=== PATIENT | female | born 1990 | race Caucasian/White ===

== ENCOUNTER → 2023-08-31 11:51 | Outpatient (REF) | payer BC, SELFPAY ==
[2023-08-31 13:51] LABS: HCG, Serum Qualitative Screen Positive
[2023-08-31 14:34] LABS: Glycohemoglobin (HgbA1c) 5.1 % (4.0-5.6)
[2023-09-01 15:51] LABS: Varicella Zoster IgG (VZV) Positive
[2023-09-01 18:51] LABS: Hepatitis B Surface Antigen Negative (Negative)
[2023-09-01 19:09] LABS: Hepatitis C Antibody Negative (Negative)
[2023-09-01 20:22] LABS: Rubella Positive
[2023-09-02 13:13] LABS: HIV Combo Negative (Negative)
[2023-09-02 16:30] LABS: Syphilis/T. pallidum Ab Reflex Negative (Negative)
== END ==
LOC: REG 11:51
PROVIDERS: ATTENDING PHYSICIAN Obstetrics & Gynecology; FAMILY PHYSICIAN Obstetrics & Gynecology
DX: Z34.90 Encounter for supervision of normal pregnancy, unspecified, unspecified trimester (principal); Z13.0 Encounter for screening for diseases of the blood and blood-forming organs and certain disorders involving the immune mechanism; Z11.3 Encounter for screening for infections with a predominantly sexual mode of transmission
CPT/HCPCS: 36415; 83036; 84703; 86762; 86780; 86787; 86803; 86850; 86900; 86901; 87086; 87340; 87389; 87522

== ENCOUNTER → 2023-09-05 11:20 | Outpatient (REF) | payer BC, SELFPAY | LOC: PNTC 11:20 | PROVIDERS: ATTENDING PHYSICIAN Obstetrics & Gynecology | DX: O36.80X0 Pregnancy with inconclusive fetal viability, not applicable or unspecified (principal) | CPT/HCPCS: 76801 ==

== ENCOUNTER → 2023-10-03 14:59 | Outpatient (REF) | payer BC, SELFPAY ==
[2023-10-03 17:31] LABS: ALT (SGPT) 11 U/L (0-35); AST (SGOT) 24 U/L (14-36); Albumin 4.1 g/dl (3.5-5.0); Alkaline Phosphatase 46 U/L (38-126); Direct Bilirubin 0.1 mg/dl (0.0-0.4); Total Bilirubin 0.6 mg/dl (0.2-1.3); Total Protein 6.5 g/dl (6.3-8.2)
[2023-10-05 17:31] LABS: Bile Acids (Cholylglycine) 9 umol/L (0-10)
[2023-10-06 10:16] LABS: Capillary Hgb Electrophoresis Not Performed; Sickle Cell Solubility Reflex Not Performed
== END ==
LOC: PNTC 14:59
PROVIDERS: ATTENDING PHYSICIAN Obstetrics & Gynecology
DX: Z36.0 Encounter for antenatal screening for chromosomal anomalies (principal); Z36.82 Encounter for antenatal screening for nuchal translucency
CPT/HCPCS: 36415; 76801; 76813; 80076; 82239; 83021

== ENCOUNTER → 2023-10-10 13:36 | Outpatient (REF) | payer BC, SELFPAY ==
[2023-10-10 15:13] LABS: % Basophils 0.7 % (0-2); % Eosinophils 3.5 % (0-6); % Immature Granulocytes 0.1 % (0-0.5); % Lymphocytes 26.3 % (20.5-51.1); % Monocytes 4.9 % (1.7-9.3); % Neutrophils 64.5 % (42.2-75.2); Absolute Basophils 0.1 10^3/uL (0-0.2); Absolute Eosinophils 0.3 10^3/uL (0-0.7); Absolute Lymphocytes 2.2 10^3/uL (1.2-3.4); Absolute Monocytes 0.4 10^3/uL (0.1-0.6); Absolute Neutrophils 5.3 10^3/uL (1.4-6.5); Hematocrit 35.5 % (37.0-47.0); Hemoglobin 12.2 g/dL (12.0-16.0); Mean Corp Hgb Conc. 34.4 g/dL (33.0-37.0); Mean Corpuscular Hgb 29.6 pg (27.0-31.0); Mean Corpuscular Volume 86.2 fL (81.0-99.0); Mean Platelet Volume 9.7 fL (7.4-10.4); Nucleated Red Blood Cells % 0 %; Platelet Count 287 10^3/uL (130-400); Red Blood Cell Count 4.12 10^6/uL (4.20-5.40); Red Cell Dist. Width 12.8 % (11.5-14.5); White Blood Cell Count 8.2 10^3/uL (4.8-10.8)
[2023-10-10 16:57] LABS: ALT (SGPT) 10 U/L (0-35); AST (SGOT) 23 U/L (14-36)
== END ==
LOC: REG 13:36
PROVIDERS: ATTENDING PHYSICIAN Obstetrics & Gynecology; FAMILY PHYSICIAN Physician Assistant
DX: L28.2 Other prurigo (principal)
CPT/HCPCS: 36415; 84450; 84460; 85025

== ENCOUNTER → 2023-11-28 13:28 | Outpatient (REF) | payer BC, SELFPAY | LOC: PNTC 13:28 | PROVIDERS: ATTENDING PHYSICIAN Obstetrics & Gynecology | DX: Z34.90 Encounter for supervision of normal pregnancy, unspecified, unspecified trimester (principal) | CPT/HCPCS: 76805 ==

== ENCOUNTER → 2024-02-16 06:51 | Outpatient (REF) | payer BC, SELFPAY | LOC: PNTC 06:51 | PROVIDERS: ATTENDING PHYSICIAN Obstetrics & Gynecology Obstetrics | DX: Z36.4 Encounter for antenatal screening for fetal growth retardation (principal); Z36.89 Encounter for other specified antenatal screening | CPT/HCPCS: 76816 ==

== ENCOUNTER → 2024-03-15 07:57 | Outpatient (REF) | payer BC, SELFPAY | LOC: PNTC 07:57 | PROVIDERS: ATTENDING PHYSICIAN Obstetrics & Gynecology | DX: O36.5110 Maternal care for known or suspected placental insufficiency, first trimester, not applicable or unspecified (principal); Z87.59 Personal history of other complications of pregnancy, childbirth and the puerperium | CPT/HCPCS: 76816 ==

== ENCOUNTER → 2024-06-12 14:51 | Outpatient (REF) | payer BC, SELFPAY | LOC: CLAB 14:51 | PROVIDERS: Pathology Anatomic Pathology & Clinical Pathology; ATTENDING PHYSICIAN General Practice | DX: D22.5 Melanocytic nevi of trunk (principal) | CPT/HCPCS: 88305 ==

== ENCOUNTER → 2025-01-22 07:25 | Outpatient (REF) | payer BC, SELFPAY ==
[2025-01-22 08:21] LABS: Hematocrit 41.3 % (37.0-47.0); Hemoglobin 13.5 g/dL (12.0-16.0); Mean Corp Hgb Conc. 32.7 g/dL (33.0-37.0); Mean Corpuscular Volume 85.7 fL (81.0-99.0); Nucleated Red Blood Cells % 0 %; Platelet Count 297 10^3/uL (130-400); Red Cell Dist. Width 12.8 % (11.5-14.5)
[2025-01-22 08:25] LABS: ALT (SGPT) 19 U/L (0-35); AST (SGOT) 24 U/L (14-36); Albumin 5.0 g/dl (3.5-5.0); Alkaline Phosphatase 55 U/L (38-126); Blood Urea Nitrogen 13 mg/dl (7-17); Calcium 9.5 mg/dl (8.4-10.2); Carbon Dioxide 27 mmol/L (22-30); Chloride 103 mmol/L (98-107); Glucose 88 mg/dl (70-99); Potassium 4.2 mmol/L (3.5-5.1); Sodium 137 mmol/L (135-145); Total Protein 7.9 g/dl (6.3-8.2); Very Low Density Lipoprotein 10 mg/dl (0-30); eGFR > 60.00
[2025-01-22 08:36] LABS: HDL Cholesterol 140 mg/dl; LDL Cholesterol, Calculated 106 mg/dl
== END ==
LOC: REG 07:25
PROVIDERS: FAMILY PHYSICIAN Physician Assistant
DX: Z13.220 Encounter for screening for lipoid disorders (principal)
CPT/HCPCS: 36415; 80053; 80061; 85025